=== PATIENT | male | born 1935 | race Caucasian/White ===

== ENCOUNTER 2019-03-22 12:00 | Emergency (ER) | payer MEDICAID ==
[~2019-03-22] VITALS: Wt 80.0 kg
[2019-03-22 12:04] VITALS: Wt 80.0 kg
--- NOTE | 2019-03-22 13:56 | ERD ---
ER Documentation Chief Complaint Chief Complaint OFF MEDS OF HTN,AND DM , JUST GOT MEDICAL HPI 83-year-old male, with history of hypertension and type 2 diabetes mellitus, presents to the emergency department, requesting a refill for his medications. Currently the patient denies any symptoms, no headache, no chest pain, no shortness of breath. ROS All systems reviewed and are negative except as per history of present illness. Medications Home Meds Active Scripts Metformin Hcl* (Metformin Hcl*) 850 Mg Tablet, 850 MG PO WITH BREAKFAST DINNE, #60 TAB Prov:YASMINE CASTANON MD 03/22/19 Enalapril Maleate* (Enalapril Maleate*) 20 Mg Tablet, 20 MG PO DAILY, #30 TAB Prov:YASMINE CASTANON MD 03/22/19 FmHx Family History: diabetes; No coronary disease Physical Exam Vitals Vital Signs Date Temp Pulse Resp B/P (MAP) Pulse Ox O2 O2 Flow FiO2 Time Delivery Rate 03/22/19 98.1 98 18 125/71 99 12:04 (89) Physical Exam Const: No acute distress Head: Atraumatic Eyes: Normal Conjunctiva ENT: Normal External Ears, Nose and Mouth. Neck: Full range of motion. No meningismus. Resp: Clear to auscultation bilaterally Cardio: Regular rate and rhythm, no murmurs Abd: Soft, non tender, non distended. Normal bowel sounds Skin: No petechiae or rashes Back: No midline or flank tenderness Ext: No cyanosis, or edema Neur: Awake and alert Psych: Normal Mood and Affect Procedures/MDM Vital signs stable. Differential diagnosis considered include uncontrolled diabetes, infection, poor compliance with insulin and diet. Low suspicion for ketoacidosis or hyperosmolar status. During the ED course the patient remained stable, no new complaints. Results and clinical impression discussed with the patient who agrees with management. The patient is stable to be treated outpatient and will be discharged home with a Rx for Metformin and enalapril, some side effects of prescribed medications (headache, rash, nausea, vomiting, diarrhea, drowsiness, habituation, bleeding, hypertension, interactions with other medications) were reviewed. Follow up with the primary care provider in the next 48h has been recommended. If symptoms persist, worsen or new symptoms develop, then patient should return to the ED immediately. Instructions explained and given directly by me to the patient with acknowledgment and demonstrated understanding. Disclaimer: Inadvertent spelling and grammatical errors are likely due to EHR/dictation software use and do not reflect on the overall quality of patient care. Also, please note that the electronic time recorded on this note does not necessarily reflect the actual time of the patient encounter. Departure Diagnosis: Primary Impression: Encounter for medication refill Condition: Stable Patient Instructions: Taking Medicine Safely Additional Instructions: Muchas rayray por [facility] para loving servicio. Esperamos que en loving visita a la navin de emergencia loving problema medico haya sido solucionado y que se sienta mucho mejor. Para estar seguros que loving mejoria sigue en proceso, le pedimos el favor de hacer matthew cole de seguimiento medico con loving doctor primario en los proximos 2-4 [place]. Lleve con usted estos documentos y las medicinas recetadas. Si gerber sintomas empeoran, NO SE ESPERE, por favor regrese a navin de emergencia INMEDIATAMENTE. En julian que usted no tenga un mdico de atencin primaria: Llame al mdico o clnica comunitaria de referencia que aparece abajo solis las horas de consultorio para hacer matthew cole para que le vean. CLINICAS: [facility] [phone] [facility] [phone] [facility] [phone] [facility] [phone] [facility] [phone] [id number] [facility] [phone] YASMINE WASHINGTON MD Mar 22, 2019 13:56
[2019-03-22] MEDS ORDERED: ENAL20TA PO (14:04)
[2019-03-22] MEDS ORDERED: METF850T13 PO (14:04)
[2019-03-22 14:17] VITALS: BP 123/68; PULSE 90; RESP 18
== END 2019-03-22 14:14 | disposition home or self-care (01) ==
LOC: FTE 12:00
DX: Z76.0 Encounter for issue of repeat prescription (principal); E11.9 Type 2 diabetes mellitus without complications; I10 Essential (primary) hypertension; Z79.84 Long term (current) use of oral hypoglycemic drugs
CPT/HCPCS: 99281